=== PATIENT | female | born 2005 | race Two or more races ===

== ENCOUNTER 2024-05-05 22:11 | Emergency (ER) | payer MEDICAID, SELFPAY ==
[2024-05-05 22:12] VITALS: BMI 24.7
[2024-05-05 22:43] VITALS: BP 114/76; PULSE 83; RESP 16; TEMP 36.7; O2SAT 95
--- NOTE | 2024-05-05 23:15 | EDNOTE_ITS ---
<Statement entered by Irina Faulkner MD - 05/06/24 04:04> As co-signing physician, I was present and available for consult prn. I concur with the plan and care as documented by the midlevel provider. ED Eye Problem RME/HPI General Chief complaint: Eye Problems Stated complaint: itchy, swelling eyes after playing with dog Time Seen by Provider: 05/05/24 23:01 Arrival date/time: 05/05/24 22:11 18F with no significant PMH presents to ED with R eye itching and swelling after playing with dog. Patient denies eye foreign body sensation. Limitations: no limitations Related Data Home Medications ?Medication ?Instructions ?Recorded ?Confirmed No Known Home Medications 06/04/2105/13 Allergies Allergy/AdvReac Type Severity Reaction Status Date / Time No Known Allergies Allergy Verified 06/04/21 12:33 Review of Systems Review of Systems Systems Reviewed: All systems reviewed, normal except as documented Constitutional Constitutional: Reports system reviewed and no additional complaints, except as documented, Denies fever(s) and Denies headache(s) Eyes Eyes: Reports as per HPI, Reports irritation and Reports itchy eyes ENT Ears, Nose, Mouth, and Throat: Denies disequilibrium and Denies headache(s) Cardiovascular Cardiovascular: Reports system reviewed and no additional complaints, except as documented, Denies chest pain and Denies dyspnea Respiratory Respiratory: Reports system reviewed and no additional complaints, except as documented, Denies cough and Denies dyspnea Gastrointestinal Gastrointestinal: Reports system reviewed and no additional complaints, except as documented, Denies abdominal pain, Denies nausea and Denies vomiting Integumentary/Breasts Skin/Breast: Reports as per HPI and Reports skin swelling Neurologic Neurologic: Reports system reviewed and no additional complaints, except as documented, Denies confusion, Denies disequilibrium and Denies headache(s) Psychiatric Psychiatric: Denies confusion Allergic/Immunologic Allergic/Immunologic: Reports itchy eyes Past Medical History Past Medical History CARDIAC: Negative Congestive Heart Failure RESPIRATORY: Negative Chronic Obstructive Pulmonary Disease (COPD) GENITOURINARY: Negative Renal Disease ENDOCRINE: Negative Diabetes Mellitus Type 1 or Diabetes Mellitus Type 2 Social History SMOKING STATUS: Never smoker ED Exam General Limitations: Present no limitations General appearance: Present alert and in no apparent distress Head Head exam: Present atraumatic Eye Eye exam: Present normal appearance, PERRL and EOMI Expanded Eye Exam Eyelids: right: erythema and swelling eyelids ENT ENT exam: Present normal exam, normal oropharynx and mucous membranes moist Neck Neck exam: Present normal inspection, full ROM and trachea midline Chest Chest inspection: Present normal inspection and symmetric chest wall rise Respiratory Respiratory exam: Present normal lung sounds bilaterally Cardiovascular Cardiovascular exam: Present regular rate, normal rhythm and normal heart sounds Abdominal Exam Abdominal exam: Present soft and normal bowel sounds Extremities Exam Extremities exam: Present normal inspection and full ROM Back Exam Back exam: Present normal inspection and full ROM Neurological Exam Neurological exam: Present alert, oriented X3 and CN II-XII intact Psychiatric Psychiatric exam: Present normal affect and normal mood Skin Skin exam: Present warm, dry, intact and normal color Course Quality Measures none Orders Category Date Time Status ED Eye Irrigation ONCE Care 05/05/24 23:01 Active DiphenhydrAMINE [Benadryl] Med 05/05/24 23:01 Discontinued 25 mg PO X1 ONE Famotidine [Pepcid] Med 05/05/24 23:01 Discontinued 20 mg PO X1 ONE predniSONE Med 05/05/24 23:01 Discontinued 40 mg PO X1 ONE Vital Signs Vital signs: Vital Signs Temperature 98.1 F 05/05/24 22:43 Pulse Rate 83 05/05/24 22:43 Respiratory Rate 16 05/05/24 22:43 Blood Pressure 114/76 05/05/24 22:43 Pulse Oximetry (%) 95 05/05/24 22:43 Oxygen Delivery Method Room Air 05/05/24 22:43 O2 at 95% on RA and WNLs Eye MDM Narrative MDM Narrative:: 18F with no significant PMH presents to ED with R eye itching and swelling after playing with dog. Patient denies eye foreign body sensation. Physical exam reveals R eyelid swelling and redness, but normal pupil response and EOM. No eyelid tenderness. Clear conjunctiva. Patient is afebrile, calm, and alert. Eye irrigation and meds relieved symptoms. Patient data External records reviewed:: [facility] previous records Clinical information provided by:: patient Social determinants that could affect healthcare access:: none Patient has the following chronic illnesses:: none How is presenting disease/condition affected by chronic disease/condition?: no chronic disease Evaluation data The following diagnostics were reviewed and interpreted by me:: other (specify) (none) Lab and/or radiology exams considered but not ordered:: not ordered Interpretation Summary: n/a Medications / Prescriptions Medications or Prescriptions considered but not ordered:: ordered Medication administrations:: Medication Administration History Discontinued Medications Diphenhydramine HCl (Diphenhydramine 25 Mg Capsule) 25 mg PO X1 ONE Stop: 05/05/24 23:02 Last Admin: 05/05/24 23:22 Dose: 25 mg Documented By: Famotidine (Famotidine 20 Mg Tablet) 20 mg PO X1 ONE Stop: 05/05/24 23:02 Last Admin: 05/05/24 23:21 Dose: 20 mg Documented By: Prednisone (Prednisone 20 Mg Tablet) 40 mg PO X1 ONE Stop: 05/05/24 23:02 Last Admin: 05/05/24 23:21 Dose: 40 mg Documented By: above Consultations Consultation(s) initiated? (list below): No Diagnosis Eye Problem Differential Diagnosis: corneal abrasion, conjunctivitis, acute iritis, hyphema, periorbital cellulitis, subconjunctival hemorrhage, glaucoma, corneal ulcer, ruptured globe and other (allergic reaction) Most likely diagnosis given after review of the tests above:: allergic reaction Admission Indicated Admission indicated?: not indicated Admission Request Was there a request for admission?: No Disposition Plan Disposition Plan: Discharge Discharge Attestation Discharge Attestation: The patient and all family members were given an opportunity to ask questions and understood the discharge instructions. Discharge instructions specifically effects, indications for sooner follow up or return to the emergency department, and the expected course of current diagnosis. Patient condition: Stable Discharge Plan Plan Patient Disposition: HOME (Self Care) Disposition Comment: Stable Prescriptions/Referrals Prescriptions/Med Rec: No Action No Known Home Medications Problem List Clinical Impression: Allergic reaction Patient/Caregiver Discharge Instructions Additional Instructions: Please follow-up with PCP within 24-48 hours and return immediately if symptoms worsen. Take OTC antihistamine as needed until symptoms resolve. Print Language: Tajik Stand Alone Forms: Patient Portal Info Letter CAROLYNN/ZAKI Supervising Physician KARO Supervising Physician: Dr. Faulkner
[2024-05-05] MEDS: predniSONE 20 MG TABLET 40 MG PO (23:21)
[2024-05-05] MEDS: FAMOTIDINE 20 MG TABLET PO (23:21)
[2024-05-05] MEDS: DiphenhydrAMINE 25 MG CAPSULE PO (23:22)
== END 2024-05-06 00:35 | disposition home or self-care (01) ==
PROVIDERS: Emergency Provider Emergency Medicine
DX: T78.40XA Allergy, unspecified, initial encounter (principal); X58.XXXA Exposure to other specified factors, initial encounter
CPT/HCPCS: 99283; J7512; A9270